=== PATIENT | male | born 1965 | race Caucasian/White ===

== ENCOUNTER → 2018-03-11 09:17 | Outpatient (REF) | payer BC, SELFPAY ==
[2018-03-11 19:59] LABS: Anion Gap 9.8 mmol/L (3-11); BUN 15 mg/dL (7-18); CO2 24.2 mmol/L (21.0-32.0); CREATININE 0.73 mg/dL (0.70-1.30); Calcium 9.4 mg/dL (8.5-10.1); Chloride 104 mmol/L (98-107); Glucose 108 mg/dL (70-100); Potassium 4.2 mmol/L (3.5-5.1); Sodium 138 mmol/L (136-145)
== END ==
LOC: NCHCN 09:17
PROVIDERS: PCP Physician Assistant Medical; Visit Provider Physician Assistant Medical
DX: I10 Essential (primary) hypertension (principal)
CPT/HCPCS: 80048

== ENCOUNTER 2018-12-01 09:28 | Outpatient (REF) | payer BC, SELFPAY ==
[2018-12-01 18:54] LABS: HCT 46.6 % (40.0-50.0); HGB 16.4 g/dL (13.5-17.5); Mean Corp. HGB Concentration 35.2 g/dL (32.0-36.0); Mean Corpuscular Hemoglobin 30.8 pg (27.0-33.0); Mean Corpuscular Volume 87.4 fL (80-95); Mean Platelet Volume 13.1 fL (8.0-11.0); Platelet Count 199 x1000/uL (130-400); RBC 5.33 m/cumm (4.50-6.00); RBC Distribution Width 12.3 % (11.8-14.1)
[2018-12-01 19:11] LABS: ALT 113 U/L (12-78); AST 62 U/L (15-37); Albumin 3.7 g/dL (3.4-5.0); Alkaline Phosphatase 75 U/L (46-116); BUN 12 mg/dL (7-18); Bilirubin, Total 0.6 mg/dL (0.2-1.0); CREATININE 0.77 mg/dL (0.70-1.30); Calcium 9.4 mg/dL (8.5-10.1); Chloride 99 mmol/L (98-107); Glucose 311 mg/dL (70-100); Potassium 4.7 mmol/L (3.5-5.1); Sodium 133 mmol/L (136-145); TSH 1.64 uIU/mL (0.358-3.74)
[2018-12-01 20:37] LABS: Hemoglobin A1C 10.2 % (4.5-6.2)
== END 2018-12-01 09:48 ==
LOC: NCHCN 09:28
PROVIDERS: PCP Physician Assistant Medical; Visit Provider Physician Assistant Medical
DX: R73.9 Hyperglycemia, unspecified (principal); R35.0 Frequency of micturition
CPT/HCPCS: 80053; 85027; 83036; 84443

== ENCOUNTER 2019-02-17 08:58 | Outpatient (REF) | payer BC, SELFPAY ==
[2019-02-17 20:51] LABS: ALT 57 U/L (12-78); AST 28 U/L (15-37); Albumin 3.8 g/dL (3.4-5.0); Alkaline Phosphatase 66 U/L (46-116); Anion Gap 10.1 mmol/L (3-11); BUN 13 mg/dL (7-18); Bilirubin, Total 0.6 mg/dL (0.2-1.0); CO2 23.9 mmol/L (21.0-32.0); CREATININE 0.78 mg/dL (0.70-1.30); Calcium 9.1 mg/dL (8.5-10.1); Calculated LDL 92 mg/dL; Chloride 105 mmol/L (98-107); Cholesterol 144 mg/dL (50-200); Glucose 99 mg/dL (70-100); HDL Cholesterol 36 mg/dL (40-60); Potassium 4.5 mmol/L (3.5-5.1); Sodium 139 mmol/L (136-145); Total Protein 6.8 g/dL (6.4-8.2); Triglyceride 82 mg/dL (30-150)
[2019-02-17 21:21] LABS: Hemoglobin A1C 5.9 % (4.5-6.2)
== END 2019-02-17 09:18 ==
LOC: NCHCN 08:58
PROVIDERS: PCP Physician Assistant Medical; Visit Provider Nurse Practitioner Family
DX: E11.65 Type 2 diabetes mellitus with hyperglycemia (principal); Z13.220 Encounter for screening for lipoid disorders
CPT/HCPCS: 80053; 80061; 83721; 83036

== ENCOUNTER 2020-02-23 09:11 | Outpatient (REF) | payer BC, SELFPAY ==
[2020-02-23 21:32] LABS: Hemoglobin A1C 5.5 % (3.8-5.6)
[2020-02-23 21:33] LABS: Anion Gap 10.3 mmol/L (3-11); BUN 13 mg/dL (7-18); CO2 24.7 mmol/L (21.0-32.0); CREATININE 0.73 mg/dL (0.70-1.30); Calcium 9.3 mg/dL (8.5-10.1); Calculated LDL 152 mg/dL (<100); Chloride 104 mmol/L (98-107); Cholesterol 208 mg/dL (<200); Glucose 102 mg/dL (74-106); HDL Cholesterol 41 mg/dL (40-60); Potassium 4.5 mmol/L (3.5-5.1); Sodium 139 mmol/L (136-145); Triglyceride 78 mg/dL (<150)
== END 2020-02-23 09:31 ==
LOC: NCHCN 09:11
PROVIDERS: PCP Physician Assistant Medical; Visit Provider Nurse Practitioner Family
DX: R73.9 Hyperglycemia, unspecified (principal); I10 Essential (primary) hypertension
CPT/HCPCS: 80048; 80061; 83036

== ENCOUNTER 2021-10-31 09:31 | Outpatient (REF) | payer BC, SELFPAY ==
[2021-10-31 21:02] LABS: ALT 61 U/L (16-63); AST 28 U/L (15-37); Albumin 4.2 g/dL (3.4-5.0); Alkaline Phosphatase 63 U/L (46-116); Anion Gap 9.5 mmol/L (3-11); BUN 14 mg/dL (7-18); Bilirubin, Total 0.5 mg/dL (0.2-1.0); CO2 24.5 mmol/L (21.0-32.0); CREATININE 0.7 mg/dL (0.70-1.30); Calcium 9.4 mg/dL (8.5-10.1); Calculated LDL 190 mg/dL (<100); Chloride 105 mmol/L (98-107); Cholesterol 253 mg/dL (<200); Glucose 109 mg/dL (74-106); HDL Cholesterol 43 mg/dL (40-60); Potassium 4.7 mmol/L (3.5-5.1); Sodium 139 mmol/L (136-145); Total Protein 7.3 g/dL (6.4-8.2); Triglyceride 101 mg/dL (<150)
== END 2021-10-31 09:32 | disposition home or self-care (01) ==
LOC: NCHCN 09:31
PROVIDERS: PCP Physician Assistant Medical; Visit Provider Nurse Practitioner Family
DX: I10 Essential (primary) hypertension (principal); R73.03 Prediabetes
CPT/HCPCS: 80053; 80061

== ENCOUNTER 2022-01-11 14:45 | Outpatient (REF) | payer BC, SELFPAY ==
[2022-01-11 18:51] LABS: ALT 61 U/L (16-63); Calculated LDL 95 mg/dL (<100); Cholesterol 155 mg/dL (<200); HDL Cholesterol 47 mg/dL (40-60); Triglyceride 66 mg/dL (<150)
== END 2022-01-11 14:46 | disposition home or self-care (01) ==
LOC: NCHCN 14:45
PROVIDERS: PCP Physician Assistant Medical; Visit Provider Nurse Practitioner Family
DX: E78.5 Hyperlipidemia, unspecified (principal)
CPT/HCPCS: 80061; 84460

== ENCOUNTER 2022-10-23 13:10 | Outpatient (REF) | payer BC, SELFPAY ==
[2022-10-23 20:33] LABS: ALT 73 U/L (16-63); AST 34 U/L (15-37); Alkaline Phosphatase 63 U/L (46-116); BUN 14 mg/dL (7-18); Bilirubin, Total 0.7 mg/dL (0.2-1.0); CREATININE 0.8 mg/dL (0.70-1.30); Calcium 9.2 mg/dL (8.5-10.1); Calculated LDL 101 mg/dL (<100); Chloride 105 mmol/L (98-107); Cholesterol 155 mg/dL (<200); Estimated GFR 104.51 (mL/min/1.73m2); Glucose 138 mg/dL (74-106); HDL Cholesterol 40 mg/dL (40-60); Potassium 4.4 mmol/L (3.5-5.1); Sodium 138 mmol/L (136-145); Total Protein 7.6 g/dL (6.4-8.2); Triglyceride 73 mg/dL (<150)
== END 2022-10-23 13:11 | disposition home or self-care (01) ==
LOC: NCHCN 13:10
PROVIDERS: PCP Physician Assistant Medical; Visit Provider Nurse Practitioner Family
DX: E78.5 Hyperlipidemia, unspecified (principal); E11.9 Type 2 diabetes mellitus without complications; I10 Essential (primary) hypertension
CPT/HCPCS: 80053; 80061

== ENCOUNTER → 2023-04-04 01:35 | Outpatient (CLI) | payer BC, SELFPAY ==
--- NOTE | 2023-04-04 09:51 | DI.RAD_ITS ---
Exam(s) XR KNEE RT 3V AP,LAT,KIRSTIN EXAM: XR KNEE RT 3V AP,LAT,KIRSTIN CLINICAL HISTORY: RT KNEE PAIN, M25.561. TECHNIQUE: 2D digital imaging was performed. Three views. COMPARISON: No exams were available for comparison FINDINGS: BONES: No acute fracture is present. No bony destructive lesion is seen. JOINTS: The knee is normally aligned. No joint effusion is seen. SOFT TISSUE: Normal. IMPRESSION: Unremarkable radiographs of the right knee. DATA REPOSITORY: RADIATION DOSE DELIVERED:
== END ==
PROVIDERS: PCP Physician Assistant Medical; Visit Provider Nurse Practitioner Family
DX: M25.561 Pain in right knee (principal)
CPT/HCPCS: 73562

== ENCOUNTER 2023-06-09 14:56 | Outpatient (CLI) | payer BC, SELFPAY ==
--- NOTE | 2023-06-09 08:30 | DI.RAD_ITS ---
Exam(s) XR KNEE RT 1V EXAM: XR KNEE RT 1V CLINICAL HISTORY: RIGHT KNEE PAIN. TECHNIQUE: 2D digital imaging was performed. COMPARISON: CR XR KNEE RT 3V AP,LAT,KIRSTIN from 04/04/2023 FINDINGS: Single merchant's view No evidence of patellar fracture nor narrowing of the patellofemoral joint space evident on this merc hant's view. No osteophytes. No osteochondral defects. There is mild lateral positioning of the pa tella within the intercondylar notch. IMPRESSION: As above. DATA REPOSITORY: RADIATION DOSE DELIVERED:
== END 2023-06-09 14:57 | disposition home or self-care (01) ==
LOC: DIORS 14:56
PROVIDERS: PCP Nurse Practitioner Family; Visit Provider Student in an Organized Health Care Education/Training Program
DX: M25.561 Pain in right knee (principal)
CPT/HCPCS: 73560

== ENCOUNTER 2023-10-22 14:36 | Outpatient (REF) | payer BC, SELFPAY ==
[2023-10-22 20:06] LABS: ALT 56 U/L (16-63); AST 29 U/L (15-37); Albumin 4.1 g/dL (3.4-5.0); Alkaline Phosphatase 62 U/L (46-116); BUN 13 mg/dL (7-18); Bilirubin, Total 0.8 mg/dL (0.2-1.0); CREATININE 0.7 mg/dL (0.70-1.30); Calcium 9.3 mg/dL (8.5-10.1); Calculated LDL 99 mg/dL (<100); Chloride 105 mmol/L (98-107); Cholesterol 165 mg/dL (<200); Estimated GFR 108.14 (mL/min/1.73m2); Glucose 80 mg/dL (74-106); HDL Cholesterol 50 mg/dL (40-60); Potassium 3.9 mmol/L (3.5-5.1); Sodium 142 mmol/L (136-145); Total Protein 7.2 g/dL (6.4-8.2); Triglyceride 82 mg/dL (<150)
== END 2023-10-22 14:37 | disposition home or self-care (01) ==
LOC: NCHCN 14:36
PROVIDERS: PCP Nurse Practitioner Family; Visit Provider Nurse Practitioner Family
DX: I10 Essential (primary) hypertension (principal); E78.5 Hyperlipidemia, unspecified
CPT/HCPCS: 80053; 80061

== ENCOUNTER 2024-09-24 10:07 | Outpatient (CLI) | payer BC, SELFPAY ==
--- NOTE | 2024-09-24 09:00 | DI.RAD_ITS ---
Exam(s) XR KNEE RT 4V AP,LAT,KIRSTIN,PAT EXAM: XR KNEE RT 4V AP,LAT,KIRSTIN,PAT CLINICAL HISTORY: right knee pain. TECHNIQUE: 2D digital imaging was performed of the right knee. Four views obtained. Merchant, AP, la teral and PA tunnel views were obtained. COMPARISON: CR XR KNEE RT 3V AP,LAT,KIRSTIN from 04/04/2023 CR XR KNEE RT 1V from 06/09/2023 FINDINGS: BONES: No acute fracture is present. No bony destructive lesion is seen. There is a small osteophyte at the superior patella. JOINTS: Mild degenerative changes are seen in the medial femoral tibial joint characterized by joint space narrowing and osteophytes. No significant joint effusion is present. SOFT TISSUE: Normal. IMPRESSION: Mild degenerative changes in the right knee. DATA REPOSITORY: RADIATION DOSE DELIVERED:
== END 2024-09-24 10:08 | disposition home or self-care (01) ==
LOC: DIORS 10:07
PROVIDERS: PCP Nurse Practitioner Family; Visit Provider Physician Assistant
DX: M23.91 Unspecified internal derangement of right knee (principal)
CPT/HCPCS: 73564

== ENCOUNTER 2024-11-10 09:30 | Outpatient (REF) | payer BC, SELFPAY ==
[2024-11-10 20:29] LABS: ALT 69 U/L (16-63); AST 51 U/L (15-37); Albumin 3.9 g/dL (3.4-5.0); Alkaline Phosphatase 64 U/L (46-116); Anion Gap 7.5 mmol/L (3-11); BUN 13 mg/dL (7-18); Bilirubin, Total 0.7 mg/dL (0.2-1.0); CO2 26.5 mmol/L (21.0-32.0); CREATININE 0.8 mg/dL (0.70-1.30); Calcium 9.1 mg/dL (8.5-10.1); Calculated LDL 77 mg/dL (<100); Chloride 108 mmol/L (98-107); Cholesterol 137 mg/dL (<200); Estimated GFR 103.22 (mL/min/1.73m2); Glucose 113 mg/dL (74-106); HDL Cholesterol 43 mg/dL (>or=40); Potassium 4.8 mmol/L (3.5-5.1); Sodium 142 mmol/L (136-145); Total Protein 7.2 g/dL (6.4-8.2); Triglyceride 88 mg/dL (<150)
== END 2024-11-10 09:31 | disposition home or self-care (01) ==
LOC: NCHCN 09:30
PROVIDERS: PCP Nurse Practitioner Family; Visit Provider Nurse Practitioner Family
DX: E78.5 Hyperlipidemia, unspecified (principal)
CPT/HCPCS: 80053; 80061

== ENCOUNTER 2024-11-29 02:37 | Outpatient (CLI) | payer BC, SELFPAY ==
--- NOTE | 2024-11-29 07:15 | DI.MRI_ITS ---
Exam(s) MR LOWER JOINT RT WO EXAM: MR LOWER JOINT RT WO CLINICAL HISTORY: R KNEE PAIN,? DEGENERATIVE MENISCUS TEAR,djd rt knee,internal derangement. TECHNIQUE: Multiplanar multisequence MRI was performed. COMPARISON: CR XR KNEE RT 4V AP,LAT,KIRSTIN,PAT from 09/24/2024 FINDINGS: BONES: There is no fracture or contusion pattern. Degenerative cyst in the lateral tibial plateau. Degenerative signal changes in the medial tibial plateau. JOINTS: A minimal joint effusion is present. Articular cartilage: Patellofemoral joint: Cartilage thinning of the medial facet. Medial femoral tibial joint: Marked cartilage thinning extending down to involving underlying bone o f the medial tibial plateau. Severe cartilage thinning and irregularity of over the lateral femoral condyle. Lateral femoral tibial joint: Mild cartilage irregularity. LIGAMENTS/TENDONS: Anterior Cruciate: Unremarkable. Posterior Cruciate: Unremarkable. Medial Collateral:Appears intact where there is outward bulging secondary to edema and meniscal cysts . Lateral Collateral ligament complex: Unremarkable. Extensor mechanism: Unremarkable. Medial retinaculum: Unremarkable. Lateral retinaculum: Unremarkable. Popliteus: Unremarkable. MENISCI: The medial meniscus is peripherally displaced consistent with degenerative changes. There is high si gnal in the body with adjacent edema and a few adjacent small meniscal cysts. The lateral meniscus is unremarkable. MUSCLES: Unremarkable. SOFT TISSUES: Unremarkable. IMPRESSION: Severe degenerative changes of the medial femoral tibial joint with degenerative changes of the media l meniscus, adjacent edema in the fat as well as small meniscal cysts. No evidence of ligament tear. DATA REPOSITORY:
== END 2024-11-29 02:57 ==
LOC: DI 02:38
PROVIDERS: PCP Nurse Practitioner Family; Visit Provider Student in an Organized Health Care Education/Training Program
DX: M17.11 Unilateral primary osteoarthritis, right knee (principal); M23.91 Unspecified internal derangement of right knee
CPT/HCPCS: 73721

== ENCOUNTER 2024-12-01 10:23 | Outpatient (CLI) | payer BC, SELFPAY ==
--- NOTE | 2024-12-01 10:00 | DI.RAD_ITS ---
Exam(s) XR STANDING ALIGNMENT EXAM: XR STANDING ALIGNMENT CLINICAL HISTORY: RIGHT KNEE PAIN. TECHNIQUE: 2D digital imaging was performed. Standing AP views were performed from the pelvis throu gh the ankles. COMPARISON: CR XR KNEE RT 4V AP,LAT,KIRSTIN,PAT from 09/24/2024 FINDINGS: BONES: No acute fracture is present. No bony destructive lesion is seen. Leg length discrepancy: Mild overall leg length discrepancy with the left femoral head projecting dali roximately 1 cm superior to the right. JOINTS: Knees: Moderate narrowing of the medial femoral tibial joint space of the right knee with mil d periarticular spurring. There is mild varus angulation. The left knee joint spaces are maintained . The ankle joints are unremarkable. The hip joints show mild bilateral joint space narrowing and periarticular spurring. SOFT TISSUE: Normal. IMPRESSION: Moderate degenerative changes of the medial femoral tibial joint space of the right knee.. Approximately 1 cm overall leg length discrepancy. DATA REPOSITORY: RADIATION DOSE DELIVERED:
== END 2024-12-01 10:24 | disposition home or self-care (01) ==
LOC: DIORS 10:24
PROVIDERS: PCP Nurse Practitioner Family; Visit Provider Student in an Organized Health Care Education/Training Program
DX: M17.11 Unilateral primary osteoarthritis, right knee (principal)
CPT/HCPCS: 77073

== ENCOUNTER 2025-01-21 09:22 | Day surgery (SDC) | payer BC, SELFPAY ==
[2025-01-21] VITALS (32 sets, daily range): BP systolic 113–145; BP diastolic 61–90; PULSE 63–83; RESP 12–21; TEMP 36.2–36.5; O2SAT 92–98; BMI 31.8
--- NOTE | 2025-01-21 07:17 | W.PM.DSUDISC ---
Date of service: 01/21/25 Discharge Plan Disposition Patient Disposition: Home Condition: Stable Discharge Details Attending Provider: Vipin Rouse Primary Care Provider: Latesha Cornell Home Meds and New Rx's Prescriptions: New oxycodone 5 mg tablet 5 - 10 mg PO .q4-6h MDD 30 mg PRN (Reason: severe pain) Qty: 18 0RF celecoxib [Celebrex] 200 mg capsule 200 mg PO DAILY Qty: 30 0RF aspirin 81 mg capsule 81 mg PO BID 30 Days Qty: 60 0RF Continued losartan 100 mg tablet 100 mg PO DAILY celecoxib 200 mg capsule 200 mg PO DAILY Qty: 30 2RF Mounjaro 2.5 mg/0.5 mL pen injector 2.5 mg subcut QWEEK Rx Instructions: for 4 weeks atorvastatin 10 mg tablet 10 mg PO DAILY Discharge Instructions Additional Instructions: Surgery: Right medial unicondylar knee replacement with patellofemoral chondroplasty 01/21/25 Activity: Weightbearing as tolerated. Recommend elevation to minimize swelling and discomfort. Walk as comfort allows. Use crutches or walker out of the home for a few weeks. It is important to restore full knee extension as soon as possible. Gently increase knee flexion over the next few weeks. Do not rest with pillows behind knee to prevent knee from getting stuck bent. Encourage ankle pumps and wiggling toes to increase circulation. A physical therapy prescription will be sent electronically to begin in about 3 weeks. Prescriptions: Aspirin 81 mg take 1 twice a day to prevent a blood clot 30 days, starting tomorrow Celebrex 200 mg take 1 daily as needed for moderate pain Oxycodone 5 mg take 1-2 every 4-6 hours as needed for severe pain You may use [id number] Tylenol (acetaminophen) as needed for mild pain. These pain medications may be taken all at once or in different combinations as needed. Also, recommend Colace (docusate) as a stool softener as surgery and pain medicine cause constipation. You may try [id number] diphenhydramine (Benadryl) 25-50 mg nightly as a sleep aid Dressings: Leave Band-Aid in place until follow-up. Keep clean and dry at all times. May remove Kapil wrap tomorrow. May re-wrap with Kapil wrap to help control swelling as needed. Follow-up: 10-[address] Rouse You may take off the leg compression Kapil wrap and stockings tomorrow at home. You may also leave them on a few days longer if you have a history of leg swelling or edema. Let us know right away if you develop any redness, drainage, fevers, chest pain, or trouble breathing. Do not drink alcohol or drive for at least 24 hours after anesthesia. Please call the office during business hours with any questions or concerns. Discharge Orders Discharge Orders: Discharge Order (Routine); Ordered 01/21/25 Ordered By: Francheska Santoyo DS: Diagnosis Discharge Diagnosis (1) Arthritis of knee, right: Status: Acute
--- NOTE | 2025-01-21 07:32 | ROE_ITS ---
Operative Note Operative Note PRE-OP DIAGNOSIS: Right knee medial compartmental arthritis POST-OP DIAGNOSIS: same PROCEDURE: Right knee medial unicompartmental arthroplasty, CPT # 83986 The assistant professor of philosophy was medically required as this procedure involves retraction, pr otection of neurovascular structures, and manipulation of multiple instruments and implants at the same time, which cannot be done without a skilled assistant professor of philosophy. SURGEON: Vipin Rouse SCHOOL ADMISSIONS REPRESENTATIVE: Francheska Santoyo ANESTHESIA TYPE: Local By Surgeon, General LMA/ETT and Primary Nerve Block Refer to Anesthesia Record ESTIMATED BLOOD LOSS: 250 COMPLICATIONS: None Patient was transported to: PACU Patient's condition: stable Implants: DePuy Sigma HP partial knee size 4 metal-backed tibial tray, 9mm tibial insert fixed bearing, size 5 femoral component Indications: Please see complete medical record for details. Findings: Significant medial compartment arthritis. Moderate medial patellar facet chondromalacia and high central trochlear chondromalacia. Preserved ACL lateral compartment. Procedure Description: The patient was taken to the operating room and transferred to the operating room table. Spinal and general anesthesia were induced. All bony prominences were well-padded. Preoperative antibiotics and 1 g TXA were administered. A tourniquet was placed loosely over padding high on the patient's thigh. The knee and lower extremity were prepped and draped in the usual sterile fashion. The correct patient, procedure, and side of the procedure were all verified prior to incision. A slightly medial of midline longitudinal approach was used to the knee extending from the superior pole the patella to the distal aspect of the tibial tubercle. The quadriceps tendon, patella borders, and patellar tendon were exposed. A full-thickness arthrotomy was performed starting splitting the quadriceps tendon and leaving a sleeve of tissue on the medial aspect of the patella and taking care to progress along the medial margin the patellar tendon. The MCL was elevated off the proximal medial tibia. The tibial alignment jig was set in place on the anterior medial aspect of the tibia and carefully adjusted to achieve proper alignment in the coronal and sagittal planes. Depth was confirmed with the stylus through the jig. Reciprocating saw was used to create the vertical cut at the medial aspect of the medial tibial eminence taking care to protect the ACL ligament footprint. The transverse cut was then done using the microsagittal saw through the jig taking care to retract and protect the MCL. The bone piece and cut were inspected and found to be appropriate for patient anatomy. A box rasp was used to clean up the cut especially the L component. The 9mm spacer block was inserted and found to have good equal stability in full extension and 90 degrees of flexion with approximately 2 mm of joint space opening in about 20 degrees of flexion. The tibial trial spacer block was used to victorino the rotational alignment and anterior extent of the femoral component. The spacer block was removed and the tibia was sized with the depth gauge. The distal femoral cutting block was inserted taking care to orient it appropriately. The cut was done using the saw through the guide. The posterior cutting block was then applied to the distal cut, ensured to be flush, rotation set, and it was pinned in place. The posterior cut was completed through the guide. The guide was removed, and the femur was sized with the femoral sizing blocks. The appropriate sized cutting jig was selected. Care was taken to ensure the block was flush with the resected distal and posterior femur bone surfaces. A curved gouge was used to cut the profile of the proximal tip of the femoral prosthesis, victorino the extent of the anterior chamfer cut, and prevent trochlear cartilage delamination. The anterior cut was done using the osteotomes, the drill was used to drill the 2 peg holes, and the posterior chamfer cut was done through the jig with the saw. This last cutting block and bone cuts were removed. The medial meniscus remnant was removed. The femoral component trial was placed on the distal femur and the 9mm spacer block confirmed appropriate balancing in flexion, extension, and again 2 mm of medial joint space opening in about 20 degrees of flexion. Tibial template was inserted and the size confirmed to be appropriate. The keel was used by hand to remove bone from the slot and the tibial peg drill was used in the peg hole. The pulse lavage was used to clean the bone surfaces. SmartSet medium viscosity cement was prepared. At the appropriate time during the early working phase, the cement was applied to the backside of the tibial and femoral components. Then, cement was carefully placed and pressurized into the proximal tibia taking care to only have minimal cement posteriorly. The tibial component was inserted at an angle and then impacted directing pressure from posterior to anterior to keep the flow of cement from posterior to anterior. Cement was then applied to the distal femur and the femoral component impacted. Excess cement was removed. The knee was brought into full extension and this position with axial load was maintained until the cement was completely hardened at 18 minutes. A combination R.E.C.K. (123 mg Ropivacaine, 0.25 mg Epinephrine, 0.04 mg Clonidine, and 15 mg Ketorolac) 50 ml injection was widely infiltrated about the knee. The wound was copiously irrigated with the pulse lavage and Surgiphor. Tibial tray toll relief operator was removed, and the final tibial insert was inserted and clicked into place. The knee was tested through range of motion found to be stable with equal balancing from full extension to flexion past 90 degrees and a couple millimeters of medial joint space opening in about 20 degrees of flexion. There was a prominence of the most anterior proximal medial femoral condyle approaching the trochlea that was resected with rongeur to minimize engagement of the medial patellar facet cartilage wear and to optimize patellar tracking although no mechanical problem could really be felt through flexion extension testing. Appropriate hemostasis was achieved. The capsule was closed using LoopLink Arthrex doubled looped suture tape and then secured with intermittent #1 Vicryl in a [id number]. There was thinning of the distalmost closure and MCL that was closed using #1 Vicryl incorporating more superficial layers watertight back over the well-closed capsular opening more proximally. The superficial layers were irrigated. Subcutaneous tissue was closed using 2-0 Monocryl in a buried interrupted fashion. Skin was closed using 3-0 Monocryl in a buried subcuticular fashion. The skin incision was glued and then covered with a Mepilex Ag dressing. An Kapil wrap was applied from the foot up to the thigh. The patient awoke from anesthesia without complication was transferred to the recovery room in stable condition. Date of Procedure: 01/21/25
[2025-01-21] MEDS: Acetaminophen 500 MG TAB 1000 MG PO (10:25)
[2025-01-21] MEDS: Gabapentin 300 MG CAP PO (10:25)
[2025-01-21] MEDS: Celecoxib 200 MG CAP 400 MG PO (10:25)
[2025-01-21] MEDS: Lactated Ringers 1,000 ML 30 ML IV (10:37)
--- NOTE | 2025-01-21 10:59 | W.ANESPRE ---
General Info Date of Service Date Performed: 01/21/25 Height: 5 ft 10 in Weight: 100.9 kg Body Mass Index (BMI): 31.8 Surgical Procedure: Operation Date: 01/21/25 11:00 Proposed Procedure Side Surgeon p Medial Unicondylar Knee Arthroplasty Right Vipin Rouse MD Meds Allergies and Home Medications Allergies Allergy/AdvReac Type Severity Reaction Status Date / Time AMOXICILLIN Allergy Intermediate Unknown Uncoded 01/21/25 10:00 Home Medication ?Medication ?Instructions ?Recorded atorvastatin 10 mg tablet 10 mg PO DAILY 04/07/23 celecoxib 200 mg capsule 200 mg PO DAILY #30 caps 11/09/24 losartan 100 mg tablet 100 mg PO DAILY 11/09/24 tirzepatide 2.5 mg/0.5 mL 2.5 mg subcut QWEEK 12/01/24 subcutaneous pen injector (Cyndi) Current Visit Medications: Current Medications Generic Name Dose Route Start Last Admin Trade Name Freq PRN Reason Stop Dose Admin Acetaminophen 1,000 mg 01/21/25 06:00 01/21/25 10:25 Acetaminophen 500 Mg Tab PO 01/21/25 23:59 1,000 mg PREOP LATASHA Administration Acidophilus/Pectin 1 cap 01/21/25 12:00 Lactobacillus Acidophilus Cap PO 01/21/25 12:01 DAILY ONE Celecoxib 400 mg 01/21/25 06:00 01/21/25 10:25 Celecoxib 200 Mg Cap PO 01/21/25 23:59 400 mg PREOP LATASHA Administration Gabapentin 300 mg 01/21/25 06:00 01/21/25 10:25 Gabapentin 300 Mg Cap PO 01/21/25 23:59 300 mg PREOP LATASHA Administration Ringer's Solution 1,000 mls @ 30 mls/hr 01/21/25 06:00 01/21/25 10:37 IV 01/21/25 23:59 30 mls/hr INFUSION LATASHA Administration Cefazolin Sodium/Dextrose 2 gm in 50 mls @ 100 mls/hr 01/21/25 06:00 Ancef Duplex IVPB 01/21/25 23:59 PREOP LATASHA Tranexamic Acid/Sodium Chloride 1,000 mg in 100 mls @ 600 mls/hr 01/21/25 06:00 IVPB 01/21/25 23:59 PREOP LATASHA Cefazolin Sodium/Dextrose 1 gm in 50 mls @ 100 mls/hr 01/21/25 18:00 Ancef Duplex IVPB 01/21/25 18:29 NOW ONE IV Miscellaneous Supplies 1 each 01/21/25 06:00 Iv Access IV 01/21/25 23:59 DIRECTED LATASHA Oxycodone HCl 0 mg 01/21/25 07:16 Oxycodone 5 Mg Tab PO 02/20/25 07:15 Q3H PRN PRN Pain Sodium Chloride 0 ml 01/21/25 06:00 Normal Saline Flush 10 Ml Syr IV 01/21/25 23:59 PRN PRN Sodium Chloride 0 ml 01/21/25 06:00 Normal Saline 10 Ml Vial IJ 01/21/25 23:59 DIRECTED PRN Sterile Water 0 ml 01/21/25 06:00 Water,Injection,Sterile 10 Ml Vial IJ 01/21/25 23:59 DIRECTED PRN PFSH Active Problems Active Problems: Problem Status Onset Code Arthritis of knee, right Acute M17.11 Degenerative joint disease of right knee Chronic M17.11 Internal derangement of right knee Acute M23.91 Hyperplastic colonic polyp Acute K63.5 Tubular adenoma of colon Acute D12.6 Hypertension Chronic I10 Hyperlipidemia Acute E78.5 Type 2 diabetes mellitus Acute E11.9 Medical History Medical History Loose right total knee arthroplasty Tobacco Smoking/Tobacco Use Status: Never Passive smoking exposure: No Alcohol Alcohol Intake: current Alcohol intake frequency: a few times a week Substance Use Substance use: Never Substance use type: does not use Vital Signs and Lab Results Vital Signs Most Recent Vital Signs in EMR: Most Recent Vital Signs Temp Pulse Resp BP Pulse Ox 36.5 C 68 18 141/90 H 96 01/21/25 09:50 01/21/25 09:50 01/21/25 09:50 01/21/25 09:50 01/21/25 09:50 Point of Care Results Point of Care Results: Finger Stick Blood Glucose 99 01/21/25 10:41 Anesthesia Assessment and Plan Anesthesia History Personal History: No History of Anesthesia Complications Family History: No Family History of Anesthesia Complications Exercise Tolerance Exercise Tolerance: Metabolic Equivalents>4 Pertinent Negatives Pertinent Negatives: No Symptoms of GERD, No Major Cardiovascular Symptoms or Complaints, No Major Pulmonary Symptoms or Complaints and No History of CVA/TIA Cardiac & Pulmonary Exam Cardiac Exam: Normal S1/S2 Heart Sounds Pulmonary Exam: Clear Bilateral Breath Sounds Implantable Cardiac Device Does patient have a Pacemaker or an ICD?: No Airway Exam Known Difficult Airway: No Mallampati Class: 2 Mouth Opening: Normal (> 3cm) Thyromental Distance: Greater than 3 cm Facial Hair: Full [place]re[place] Neck Range of Motion: Full ROM Neck Circumference: Normal Teeth Condition: Normal Dentition (mentionws cracked molar on left side ) ASA Classification ASA Score: ASA 2 Emergency Case?: No NPO Status NPO Status: NPO Clears >2 hours, Solids >8 hours Anesthesia Plan Resuscitation Status: Full Code Anesthesia Technique: Spinal Anesthesia Airway Planned: Natural Airway Pain Management: Surgeon and patient request nerve block Monitors Used: Standard Monitors
--- NOTE | 2025-01-21 11:33 | W.ANESNERVE ---
Nerve Block Single Injection Procedure Date and Time Date Performed: 01/21/25 Procedure Start: 11:23 Location Where Procedure Performed Procedure Location: Day Surgery Unit Reason Performed: Postoperative Analgesia Requesting Provider: Vipin Rouse Timeout Performed Timeout Performed: Yes Monitoring Used ECG, Blood Pressure, SpO2 and See EMR for corresponding vital signs Sterility Sterility: Hand Hygiene, Surgical Cap, Surgical Mask, Sterile Gloves and Chlorhexidine Sedation Given During Procedure Sedation Given (Indicate Dose Given): No Sedation given Patient Mental Status Patient Mental Status: Awake Nerve Block 1st Nerve Block: Laterality: Right Block Type: Adductor Canal Ultrasound Image Saved?: Yes Needle / Catheter Used: 100mm SonoPlex II Local Anesthetic Bolus (Indicate Dose Given): Lidocaine used for local infiltration of skin, Injected in 3-5ml increments after negative blood aspiration, Bupivacaine 0.25% Dose:: 10 ml and Exparel Dose:: 10 ml Additives (Indicate Dose Given): None Ultrasound: Sterile probe cover and gel used Nerve Stimulator: Supplement to Ultrasound use and No twitch or parasthesia noted < 0.5 mA Paresthesia: None Procedure Tolerated: No Complications and Patient tolerated well Procedure Outcome: Successful Performed By: Vanessa Allen Supervised By: Sadaf Kyle
[2025-01-21] MEDS: ceFAZolin 2 GM/50 ML BAG IVPB (11:40)
[2025-01-21] MEDS: TRANEXAMIC ACID/SOD. CHL. 1,000 MG/100 ML BAG 600 MG IVPB (11:55)
[2025-01-21] MEDS: Bupivacaine 0.25% Pres-Free W/EPI 30 ML VIAL (14:45)
[2025-01-21] MEDS: ceFAZolin 1 GM/50 ML BAG IVPB (15:32)
--- NOTE | 2025-01-21 15:47 | DI.RAD_ITS ---
Exam(s) XR KNEE RT 2V AP,LAT EXAM: XR KNEE RT 2V AP,LAT INDICATION: knee arthritis. COMPARISON: CR XR KNEE RT 4V AP,LAT,KIRSTIN,PAT from 09/24/2024 TECHNIQUE: 2D digital imaging was performed. Two views. Portable FINDINGS: A medial femoral tibial joint space prosthesis has been placed which show satisfactory alignment. There is residual postsurgical air in the soft tissues. DATA REPOSITORY: RADIATION DOSE DELIVERED:
[2025-01-21] MEDS: Lactobacillus Acidophilus CAP 1 CAP PO (16:27)
--- NOTE | 2025-01-21 17:15 | W.ANESPOSTOP ---
Postoperative Evaluation Date, Time and Location Date Performed: 01/21/25 Time Performed: 17:15 Patient Location: Day Surgery Unit Vital Signs Most Recent Imported Vital Signs: Most Recent Vital Signs Temp Pulse Resp BP Pulse Ox 36.2 C L 67 18 145/83 H 96 01/21/25 16:31 01/21/25 16:31 01/21/25 16:31 01/21/25 16:31 01/21/25 16:31 Pain Score Most Recent Pain Score: Most Recent Pain Score Pain Level 2 01/21/25 16:31 Assessment Mental Status: Awake (Alert & Oriented to Patient Baseline) Airway and Respiratory Function: Patent airway with normal (patient baseline) respiratory exam Cardiovascular Function: Hemodynamically Stable Hydration Status: Adequately Hydrated Nausea & Vomiting: No Nausea or Vomiting Pain: Pain is tolerable per patient Peripheral Nerve Block: Regional nerve block not resolved at time of post operative discharge
== END 2025-01-21 17:30 | disposition home or self-care (01) ==
LOC: SUR 09:22
PROVIDERS: PCP Nurse Practitioner Family; Visit Provider Student in an Organized Health Care Education/Training Program
PROC: (CPT 27446; principal; 2025-01-21 10:30)
DX: M17.11 Unilateral primary osteoarthritis, right knee (principal); G89.18 Other acute postprocedural pain
CPT/HCPCS: 27446; 64447; 73560; C1776; J0131; J0665; J0666; J0690; J1100; J1885; J2250; J2405; J2704

== ENCOUNTER 2025-02-01 08:55 | Outpatient (CLI) | payer BC, SELFPAY ==
--- NOTE | 2025-02-01 08:15 | DI.RAD_ITS ---
Exam(s) XR KNEE RT 2V AP,LAT EXAM: XR KNEE RT 2V AP,LAT INDICATION: post op. COMPARISON: CR XR KNEE RT 2V AP,LAT from 01/21/2025 TECHNIQUE: 2D digital imaging was performed. Two views. FINDINGS: Stable alignment of medial femoral tibial joint space prosthesis. Small joint effusion. Mild anterior soft tissue swelling. DATA REPOSITORY: RADIATION DOSE DELIVERED:
== END 2025-02-01 08:56 | disposition home or self-care (01) ==
LOC: DIORS 08:56
PROVIDERS: PCP Nurse Practitioner Family; Visit Provider Student in an Organized Health Care Education/Training Program
DX: M17.11 Unilateral primary osteoarthritis, right knee (principal); M25.461 Effusion, right knee
CPT/HCPCS: 73560

== ENCOUNTER 2025-04-05 13:44 | Outpatient (CLI) | payer BC, SELFPAY ==
--- NOTE | 2025-04-05 07:45 | DI.RAD_ITS ---
Exam(s) XR KNEE RT 2V AP,LAT EXAM: XR KNEE RT 2V AP,LAT INDICATION: F/U RIGHT UKA. COMPARISON: CR XR KNEE RT 2V AP,LAT from 02/01/2025 TECHNIQUE: 2D digital imaging was performed. Two views. FINDINGS: Medial femoral tibial joint space prosthesis is again noted. There are no abnormal surrounding lucencies. There is decreased soft tissue swelling. There is a small joint effusion. DATA REPOSITORY: RADIATION DOSE DELIVERED:
== END 2025-04-05 13:45 | disposition home or self-care (01) ==
LOC: DIORS 13:44
PROVIDERS: PCP Nurse Practitioner Family; Visit Provider Student in an Organized Health Care Education/Training Program
DX: M17.11 Unilateral primary osteoarthritis, right knee (principal)
CPT/HCPCS: 73560

== ENCOUNTER 2025-04-19 17:34 | Outpatient (REF) | payer BC, SELFPAY ==
[2025-04-19 20:29] LABS: COMMENT (LAB VIEW ONLY) 188.87 mg/dL; Microalb ug/mg Crea 6.7 ug/mg Cr
== END 2025-04-19 17:35 | disposition home or self-care (01) ==
LOC: NCHCN 17:34
PROVIDERS: PCP Nurse Practitioner Family; Visit Provider Physician Assistant
DX: E11.9 Type 2 diabetes mellitus without complications (principal)
CPT/HCPCS: 82043; 82570

== ENCOUNTER 2025-06-07 11:11 | Outpatient (CLI) | payer BC, SELFPAY ==
--- NOTE | 2025-06-07 08:12 | DI.RAD_ITS ---
Exam(s) XR KNEE RT 2V AP,LAT EXAM: XR KNEE RT 2V AP,LAT CLINICAL HISTORY: F/U RIGHT UKA. TECHNIQUE: 2D digital imaging was performed. Two images were obtained. AP and lateral views were obtained. COMPARISON: CR XR KNEE RT 2V AP,LAT from 02/01/2025 CR XR KNEE RT 2V AP,LAT from 04/05/2025 FINDINGS: BONES: There are stable post operative changes of a unicompartmental right knee arthroplasty present. No fracture or dislocation. JOINTS: The orthopedic hardware is in good position. No evidence of hardware loosening. SOFT TISSUE: There is continued decrease in the soft tissue swelling around the knee. IMPRESSION: Stable unicompartmental right knee arthroplasty. DATA REPOSITORY: RADIATION DOSE DELIVERED:
== END 2025-06-07 11:12 | disposition home or self-care (01) ==
LOC: DIORS 11:11
PROVIDERS: PCP Nurse Practitioner Family; Visit Provider Student in an Organized Health Care Education/Training Program
DX: M17.11 Unilateral primary osteoarthritis, right knee (principal); Z47.1 Aftercare following joint replacement surgery; Z96.651 Presence of right artificial knee joint
CPT/HCPCS: 73560